=== PATIENT | female | born 1935 | race Caucasian/White ===

== ENCOUNTER 2019-12-12 20:23 | Emergency (ER) | payer OTHER ==
--- NOTE | 2019-12-12 22:54 | ER ---
Nurse's Notes [facility] Name: Jessica Toledo Age: 84 yrs Sex: Female : 1935 Arrival Date: 12/12/2019 Time: 20:25 Bed 5 Private MD: Diagnosis: Hypertension;Stress Reaction Presentation: 12/11 20:46 Chief complaint: Patient's son or daughter states: niece: Elevated BP since last night. ca1 SBP 170s. Today, when to SBPs 200. Denies any symptoms. Denies headache. Denies nausea. Denies dizziness. It could be stress. My mother, her sister was sick and this morning. She's visiting here for about a month now, and helping out. Coronavirus screen: Client denies travel out of the [place] in the last 14 days. At this time, the client does not indicate any symptoms associated with coronavirus-19. Ebola Screen: Patient negative for fever greater than or equal to 101.5 degrees Fahrenheit, and additional compatible Ebola Virus Disease symptoms Patient denies exposure to infectious person. Patient denies travel to an Ebola-affected area in the 21 days before illness onset. No symptoms or risks identified at this time. Initial Sepsis Screen: Does the patient meet any 2 criteria? No. Patient's initial sepsis screen is negative. Does the patient have a suspected source of infection? No. Patient's initial sepsis screen is negative. Risk Assessment: Do you want to hurt yourself or someone else? Patient reports no desire to harm self or others. Onset of symptoms was December 12, 2019. 20:46 Method Of Arrival: Ambulatory ca1 20:46 Acuity: GARCIA 3 ca1 20:50 Chief complaint: Niece: was at [facility] this morning. Prescribed Clonidine. BP decreased, ca1 but prescription was not filled. Historical: - Allergies: 20:52 No Known Allergies; ca1 - PMHx: 20:52 Hypertension; ca1 - PSHx: 20:52 Hysterectomy; ca1 - Immunization history:: Adult Immunizations up to date. - Social history:: Smoking status: Patient denies any tobacco usage or history of. Screenin:43 Abuse screen: Denies threats or abuse. Nutritional screening: No deficits noted. ea Tuberculosis screening: No symptoms or risk factors identified. Fall Risk None identified. Assessment: 21:42 General: Appears in no apparent distress. Behavior is calm, cooperative, appropriate ea for age. Pain: Denies pain. Neuro: Level of Consciousness is awake, alert, obeys commands, Oriented to person, place, time. Cardiovascular: Patient's skin is warm and dry. Respiratory: Airway is patent Respiratory effort is even, unlabored, Respiratory pattern is regular, symmetrical. Derm: Skin is pink, warm \T\ dry. 22:10 Reassessment: Patient and/or family updated on plan of care and expected duration. Pain ea level reassessed. Patient is alert, oriented x 3, equal unlabored respirations, skin warm/dry/pink. 22:59 Reassessment: Patient and/or family updated on plan of care and expected duration. Pain ea level reassessed. Patient is alert, oriented x 3, equal unlabored respirations, skin warm/dry/pink. Discharge instruction given to patient, verbalized the understanding of instruction. Pt left ED ambulatory tolerating well. Vital Signs: 20:46 BP 218 / 98; Pulse 71; Resp 16 S; Temp 98.5(O); Pulse Ox 98% on R/A; Weight 74.84 kg ca1 (R); Height 4 ft. 10 in. (147.32 cm) (R); Pain 0/10; 21:43 BP 191 / 68; Pulse 59; Resp 18; Pulse Ox 97% ; ea 21:59 BP 180 / 61; Pulse 59; Resp 18; Pulse Ox 96% on R/A; Pain 0/10; mg2 22:06 BP 164 / 63; Pulse 57; Resp 18; Pulse Ox 97% ; ea 23:00 BP 166 / 61; Pulse 59; Resp 18; Pulse Ox 98% ; ea 20:46 Body Mass Index 34.48 (74.84 kg, 147.32 cm) ca1 ED Course: 20:25 Patient arrived in ED. bp1 20:51 Triage completed. ca1 20:52 Arm band placed on right wrist. ca1 21:42 Yudy Dean, SEREN[facility] is Primary Nurse. ea 21:43 Patient has correct armband on for positive identification. Placed in gown. Bed in low ea position. Call light in reach. 21:57 David John MD is Attending Physician. mh7 21:59 No provider procedures requiring assistance completed. Patient did not have IV access mg2 during this emergency room visit. Administered Medications: No medications were administered Outcome: 22:53 Discharge ordered by MD. sofia 23:24 Discharged to home ambulatory, with family. mg2 23:24 Condition: stable 23:24 Discharge instructions given to patient, Instructed on discharge instructions, follow up and referral plans. Demonstrated understanding of instructions, follow-up care. 23:24 Patient left the ED. mg2 Signatures: Yudy Dean RN RN ea Gardose, Michele, RN RN mg2 Acob, Cheryl, RN RN ca1 Paniauga, Brittany bp1 Holmes, Maurice, MD MD 7 Corrections: (The following items were deleted from the chart) 21:38 21:37 BP 142 / 97; Pulse 90bpm; Resp 18bpm; Pulse Ox 99% RA; jim fernandez
--- NOTE | 2019-12-12 22:54 | EDPHYS ---
Physician Documentation [facility] Name: Jessica Toledo Age: 84 yrs Sex: Female : 1935 Arrival Date: 12/12/2019 Time: 20:25 Bed 5 Private MD: ED Physician David John HPI: 12/11 22:33 This 84 yrs old Female presents to ER via Ambulatory with complaints of High mh7 Blood Pressure. 22:33 The patient has elevated blood pressure and discovered this at home, with a home device.mh7 22:33 Onset: The symptoms/episode began/occurred 1 week(s) ago. Modifying factors: The mh7 symptoms are aggravated by stress due to sister's recent , The symptoms are alleviated by prescription meds. Associated signs and symptoms: Pertinent negatives: chest pain, dizziness, dyspnea, headache, lightheadedness, nausea, visual changes, vomiting, weakness. Severity of symptoms: At its worst the blood pressure was 200 mm Hg, in the emergency department the blood pressure is improved, markedly, 164 mm Hg. The patient has experienced similar episodes in the past, multiple times. Historical: - Allergies: 20:52 No Known Allergies; ca1 - PMHx: 20:52 Hypertension; ca1 - PSHx: 20:52 Hysterectomy; ca1 - Immunization history:: Adult Immunizations up to date. - Social history:: Smoking status: Patient denies any tobacco usage or history of. ROS: 22:33 Constitutional: Negative for fever, chills, and weight loss, Eyes: Negative for injury, mh7 pain, redness, and discharge, ENT: Negative for injury, pain, and discharge, Neck: Negative for injury, pain, and swelling, Cardiovascular: Negative for chest pain, palpitations, and edema, Respiratory: Negative for shortness of breath, cough, wheezing, and pleuritic chest pain, Abdomen/GI: Negative for abdominal pain, nausea, vomiting, diarrhea, and constipation, Back: Negative for injury and pain, : Negative for injury, bleeding, discharge, and swelling, MS/Extremity: Negative for injury and deformity, Skin: Negative for injury, rash, and discoloration, Neuro: Negative for headache, weakness, numbness, tingling, and seizure, Psych: Negative for depression, anxiety, suicide ideation, homicidal ideation, and hallucinations, Allergy/Immunology: Negative for hives, rash, and allergies, Endocrine: Negative for neck swelling, polydipsia, polyuria, polyphagia, and marked weight changes, Hematologic/Lymphatic: Negative for swollen nodes, abnormal bleeding, and unusual bruising. Exam: 22:33 Constitutional: This is a well developed, well nourished patient who is awake, alert, mh7 and in no acute distress. Head/Face: Normocephalic, atraumatic. Eyes: Pupils equal round and reactive to light, extra-ocular motions intact. Lids and lashes normal. Conjunctiva and sclera are non-icteric and not injected. Cornea within normal limits. Periorbital areas with no swelling, redness, or edema. ENT: Nares patent. No nasal discharge, no septal abnormalities noted. Tympanic membranes are normal and external auditory canals are clear. Oropharynx with no redness, swelling, or masses, exudates, or evidence of obstruction, uvula midline. Mucous membranes moist. Neck: Trachea midline, no thyromegaly or masses palpated, and no cervical lymphadenopathy. Supple, full range of motion without nuchal rigidity, or vertebral point tenderness. No Meningismus. Chest/axilla: Normal chest wall appearance and motion. Nontender with no deformity. No lesions are appreciated. Cardiovascular: Regular rate and rhythm with a normal S1 and S2. No gallops, murmurs, or rubs. Normal PMI, no JVD. No pulse deficits. Respiratory: Lungs have equal breath sounds bilaterally, clear to auscultation and percussion. No rales, rhonchi or wheezes noted. No increased work of breathing, no retractions or nasal flaring. Abdomen/GI: Soft, non-tender, with normal bowel sounds. No distension or tympany. No guarding or rebound. No evidence of tenderness throughout. Back: No spinal tenderness. No costovertebral tenderness. Full range of motion. Skin: Warm, dry with normal turgor. Normal color with no rashes, no lesions, and no evidence of cellulitis. MS/ Extremity: Pulses equal, no cyanosis. Neurovascular intact. Full, normal range of motion. Neuro: Awake and alert, GCS 15, oriented to person, place, time, and situation. Cranial nerves II-XII grossly intact. Motor strength 5/5 in all extremities. Sensory grossly intact. Cerebellar exam normal. Normal gait. Psych: Awake, alert, with orientation to person, place and time. Behavior, mood, and affect are within normal limits. Vital Signs: 20:46 BP 218 / 98; Pulse 71; Resp 16 S; Temp 98.5(O); Pulse Ox 98% on R/A; Weight 74.84 kg ca1 (R); Height 4 ft. 10 in. (147.32 cm) (R); Pain 0/10; 21:43 BP 191 / 68; Pulse 59; Resp 18; Pulse Ox 97% ; ea 21:59 BP 180 / 61; Pulse 59; Resp 18; Pulse Ox 96% on R/A; Pain 0/10; mg2 22:06 BP 164 / 63; Pulse 57; Resp 18; Pulse Ox 97% ; ea 23:00 BP 166 / 61; Pulse 59; Resp 18; Pulse Ox 98% ; ea 20:46 Body Mass Index 34.48 (74.84 kg, 147.32 cm) ca1 MDM: 22:32 Patient medically screened. [facility] 22:51 Differential diagnosis: hypertensive crisis, Malignant HTN, Hypertension. Data [facility] reviewed: vital signs, nurses notes. Data interpreted: Pulse oximetry: on room air is 97 %. Interpretation: normal. Counseling: I had a detailed discussion with the patient and/or guardian regarding: the historical points, exam findings, and any diagnostic results supporting the discharge/admit diagnosis, the presence of at least one elevated blood pressure reading (>120/80) during this emergency department visit, the need for outpatient follow up, to return to the emergency department if symptoms worsen or persist or if there are any questions or concerns that arise at home. Response to treatment: the patient's symptoms have markedly improved after treatment. Administered Medications: No medications were administered Disposition: 12/12/19 22:53 Discharged to Home. Impression: Hypertension, Stress Reaction. - Condition is Stable. - Discharge Instructions: Hypertension, [id number], Stress and Stress Management. - Medication Reconciliation Form, Thank You Letter, Antibiotic Education, Prescription Opioid Use form. - Follow up: Private Physician; When: 1 - 2 days; Reason: Worsening of condition, Recheck today's complaints, Continuance of care, Re-evaluation by your physician. - Problem is an ongoing problem. - Symptoms have improved. Signatures: James Martinez RN RN mg2 Melvina Sam RN RN ca1 David John MD MD mh7 Corrections: (The following items were deleted from the chart) 23:24 22:53 12/12/2019 22:53 Discharged to Home. Impression: Hypertension; Stress Reaction. mg2 Condition is Stable. Forms are Medication Reconciliation Form, Thank You Letter, Antibiotic Education, Prescription Opioid Use. Follow up: Private Physician; When: 1 - 2 days; Reason: Worsening of condition, Recheck today's complaints, Continuance of care, Re-evaluation by your physician. Problem is an ongoing problem. Symptoms have improved. mh7
[2019-12-12 23:35] VITALS: BP 166/61; O2SAT 98
[2019-12-12 23:46] VITALS: TEMP 98
== END 2019-12-12 23:24 | disposition home or self-care (01) ==
LOC: ER 20:23
DX: F43.9 Reaction to severe stress, unspecified (principal)
CPT/HCPCS: 99282